=== PATIENT | male | born 1960 | race Caucasian/White ===

== ENCOUNTER 2017-01-14 14:19 | Emergency (ER) | payer OTHER ==
[~2017-01-14] VITALS: Ht 167.6 cm; Wt 72.6 kg
[~2017-01-14 14:19] MED LIST: FARXIGA5 MG PO; GLYBURIDE 5MG TA5 MG PO; LISINOPRIL10 MG PO; MELOXICAM15 MG PO; METFORMIN HCL1000 MG PO; NORCO 325 MG-51 TAB PO; PRANDIN 1 MG TAB1 MG PO; PRAVACHOL40 MG PO; TANZEUM30 MG SC
--- NOTE | 2017-01-14 14:30 | Emergency Room Report ---
History of Present Illness Time Seen by MD Mckeon Presenting Problem in Triage Pt arrived: Presenting Problem: Onset of symptoms date/time:/ or onset unknown for: Treatment Prior to Arrival: BULB GROWER Provided by: Sepsis Risk Assessment: Temp: B/P: MAP: Pulse: Resp: Recent fever? Clinical Suspician of Infection? Mental Status: Sepsis Risk: Have you (or family members/close friends) recently traveled outside the [place]? If Yes, where/when: Have you had exposure to infectious disease within the past month? TB? Other? Specify: Source patient, RN notes reviewed Exam Limitations no limitations Comment Accidentally cut his right lilly on a paint can lid earlier this morning. Last tetanus about 5 years ago ALLERGIES Coded Allergies: No Known Allergies (06/04/15) Home Medications Reported Medications METFORMIN HCL (Metformin 1000MG) 1,000 MG PO BID Lisinopril 10 MG PO DAILY #30 Tramadol Hcl (Tramadol 50MG) 50 MG PO BID #60 Glyburide (Glyburide 5MG) 5 MG PO BID Pravastatin Sodium (Pravachol) 40 MG PO QHS #30 Meloxicam (Meloxicam 15MG) 15 MG PO DAILY #30 Albiglutide (Tanzeum) 30 MG SC MONDAY #4 Dapagliflozin Propanediol (Farxiga) 5 MG PO DAILY #30 History Medical History General CAD? No Angina: No [place]: No Hypertension? Yes Hyperlipidemia? Yes CHF? No DVT? No PE? No COPD? No Asthma? No Anemia? No GERD? No Gastric ulcers? No GI Bleed? No Hernia? No Thyroid Problems? No Hypothyroidism? No CVA? No Seizures? No Diabetes? Yes Insulin Dependent: No Insulin Pump: No Home FSBS? Yes Renal Insuffiency? No End Stage Renal Disease? No UTI? No Stones? No BPH? No GB Disease: No Nephritic Syndrome? No Asplenia? No Hepatitis? No Sickle Cell Disease? No Arthritis? No Migraines? No Cataracts? No Glaucoma? No MRSA? No HIV? No TB? No Anxiety? No Depression? No Cancer? No More? No Immunization Hx DT/Tetanus Unknown Flu 2014-16FSN Pneumonia Received In Past Surgical Hx Previous Surgery?Y COLONOSCOPY VASECTOMY ABD TUMOR REMOVAL Social History Alcohol Alcohol: No Review of Systems All Other Systems Reviewed and Negative Constitutional see HPI Skin see HPI Physical Exam Vital Signs Vital Signs Date Time Temp Pulse Resp B/P Pulse O2 O2 Flow FiO2 Ox Delivery Rate 01/14 1424 98.1 82 18 144/80 97 General Appearance normal appearance, WD/WN, no apparent distress Respiratory Status No: respiratory distress. Lung Sounds bilateral: normal breath sounds. Cardiovascular normal exam, regular rate/rhythm Extremities 5 cm cut on right lower leg Neurologic alert, director data analytics II-XII nml as tested, normal exam Skin 5 cm laceration on right lower leg Medical Decision Making LABS/Meds/Orders Pt receiving controlled substance in ED? No Results/Orders Current Medication Orders Sig/Chepe Start time Last Medication Dose Route Stop Time Status Admin Multi-Ingredient 0 .STK-MED ONE 01/14 1513 DC Ointment TP Lidocaine HCl 10 ML ONCE ONE 01/14 1445 DC 01/14 SC 01/14 144 1442 Lidocaine HCl 0 .STK-MED ONE 01/14 1440 DC .ROUTE Orders Procedure Date/time Status PROCEDURE TRAY SET UP 01/14 1439 Active PREPARE CONSENT 01/14 143 Active Procedures Laceration/Wound Repair Laceration/Wound Repair Risks/benefits discussed with pt/guardian? Yes Tetanus status up to date Wound Location lower leg Wound Length (cm) 5 Wound's Depth, Shape sucutaneous tissue Wound Explored no FB identified Risk of retained FB explained to pt/guardian? No Irrigated w/ Saline (ccs) 50 Wound Prep Hibiclens, Saline Anesthesia 1% Lidocaine Volume Anesthetic (ccs) 10 Wound Debrided none Wound Repaired With sutures Suture Size/Type 4:0, Ethilon Layer Closure No Total Number Sutures 11 Sterile Dressing Applied Yes Splint Applied No Departure Departure Time of Disposition 1513 Disposition DC Home or Self Care(routine) Clinical Impression Primary Impression: Laceration of right leg excluding thigh Qualifiers: Encounter type: initial encounter Qualified Code: S81.811A - Laceration without foreign body, right lower leg, initial encounter Condition STABLE Referrals Jordi Díaz MD (Family): 2 Days-Call Office Patient Instructions DI for Laceration Repair -- Simple, Laceration Repair Additional Instructions Pt instructed to change dressing daily and apply bactroban ointment daily. Followup with PCP in 2 to 3 days to check stitches and in 10 to 12 days to remove stitches Discharge Counseling Counseled pt/family regarding diagnosis, test results, medications/RX, home care, follow up needs Prescriptions Current Visit Scripts MUPIROCIN 2% (Bactroban Oint) 0 GM TP DAILY #1 TUBE ED Critical Care Critical Care No If Critical Care minutes are documented, the time involved in the performance of seperately reportable procedures was not counted toward critical care time documented. I directly delivered medical care to this critically ill and/or injured patient. Timely evaluation and treatment was necessary to address the significant organ system(s) dysfunction present in this patient. at [id number]
[2017-01-14] MEDS ORDERED: TRAMADOL 50MG T50 MG PO (14:32)
[2017-01-14] MEDS ORDERED: GLYBURIDE 5MG TA5 MG PO (14:33)
[2017-01-14] MEDS ORDERED: BACTROBAN2% TP (15:17)
[2017-01-14 15:25] VITALS: BP 135/67
--- OUTSIDE RECORDS SUMMARY | 2017-01-15 04:23 | External Medical Summary Rpt | CCD ---
Author Author , FAITH CUEVAS Address Unknown Phone [email or web address] Purpose Continuity of Care Document - through 2016 Problems Code Diagnosis DOS Provider Status K91.840 POSTPROC HEMOR OF A DGSTV SYS ORG FOL A DGSTV SYS PROCEDURE
--- OUTSIDE RECORDS SUMMARY | 2017-01-15 04:23 | External Medical Summary Rpt | CCD ---
Author Author , FAITH CUEVAS Address Unknown Phone [email or web address] Purpose Continuity of Care Document - through 2016 Problems Code Diagnosis DOS Provider Status K91.840 POSTPROC HEMOR OF A DGSTV SYS ORG FOL A DGSTV SYS PROCEDURE
--- OUTSIDE RECORDS SUMMARY | 2017-01-15 04:23 | External Medical Summary Rpt | CCD ---
Author Author [employer] Organization [employer] Address Unknown Phone Unavailable Purpose Continuity of Care Document - through 2016
--- OUTSIDE RECORDS SUMMARY | 2017-01-15 04:23 | External Medical Summary Rpt | CCD ---
Author Author , FAITH CUEVAS Address Unknown Phone [email or web address] Immunization Name Date Rout CVX Reac Dose Comm Prov Is Faci e tion ent ider Refu lity Give sed n Infl 09-2 Intr 0.5 Hist PD20 No PD20 uenz 9-20 amus mL oric 255 255 a 17 cula al Quad r Info rmat W/Pr ion es - Sour ce Unsp ecif ied
--- OUTSIDE RECORDS SUMMARY | 2017-01-15 04:23 | External Medical Summary Rpt | CCD ---
Author Author , FAITH CUEVAS Address Unknown Phone Immunization Name Date Rout CVX Reac Dose Comm Prov Is Faci e tion ent ider Refu lity Give sed n Infl 09-2 Intr 0.5 Hist PD20 No PD20 uenz 9-20 amus mL oric 255 255 a 17 cula al Quad r Info rmat W/Pr ion es - Sour ce Unsp ecif ied
== END 2017-01-14 15:25 | disposition home or self-care (01) ==
LOC: ER 14:19
PROC: 0HQKXZZ Repair Right Lower Leg Skin, External Approach (ICD-10-PCS; principal; 2017-01-14)
DX: S81.811A Laceration without foreign body, right lower leg, initial encounter (principal); I10 Essential (primary) hypertension; E78.5 Hyperlipidemia, unspecified; E11.9 Type 2 diabetes mellitus without complications; W22.8XXA Striking against or struck by other objects, initial encounter; Y92.9 Unspecified place or not applicable